=== PATIENT | female | born 1975 | race Caucasian/White ===

== ENCOUNTER → 2020-05-06 10:02 | Outpatient (CLI) | payer BC, SELFPAY ==
--- NOTE | ~2020-05-06 | US_ITS ---
EXAMINATION: US thyroid DATE: 05/06/2020 10:38 INDICATION: Thyroid nodule. TECHNIQUE: Multiple ultrasound images of the thyroid were obtained. COMPARISON: None. FINDINGS: The right thyroid lobe measures 5.4 x 1.3 x 1.7 cm. The left thyroid lobe measures 4.4 x 1.5 x 1.5 c m. There is normal echotexture and echogenicity throughout the thyroid gland. No discrete nodules id entified. Normal vascular flow is present. IMPRESSION: 1. Normal thyroid. Reviewed, dictated and finalized at location A. IMPRESSION: 1. Normal thyroid.
== END ==
PROVIDERS: PCP Family Medicine; Visit Provider Physician Assistant
DX: E04.1 Nontoxic single thyroid nodule (principal)
CPT/HCPCS: 76536